=== PATIENT | female | born 1960 | race Caucasian/White ===

== ENCOUNTER 2020-05-16 13:11 | Outpatient (CLI) | payer MEDICARE, MEDICAID, SELFPAY ==
--- NOTE | 2020-05-16 13:28 | XR_ITS ---
WS: [id number] XR lumbar spine 2-3V* [id number] REASON FOR EXAM: DORSALGIA, UNSPECIFIED FINDINGS: The thoracolumbar junctions shows scoliosis convex to the left. Degenerated changes are not ed at the T11-12 area. There is loss of the disc spaces also seen at L5-S1. There is degenerate spurring from L1 through S1. There is increased lordosis identified. XR/XR lumbar spine 2-3V* [id number] IMPRESSION: Degenerated disc changes L5-S1 line degenerate changes with scoliosis thoracolu mbar area convex to the left There is degenerate spurring L1-S1 Increased lordosis.
== END 2020-05-16 13:12 | disposition home or self-care (01) ==
LOC: RADWPI 13:17
PROVIDERS: Family Provider Nurse Practitioner Family; PCP Nurse Practitioner Family; Visit Provider Nurse Practitioner Family
DX: M51.37 Other intervertebral disc degeneration, lumbosacral region; M46.07 Spinal enthesopathy, lumbosacral region; M40.56 Lordosis, unspecified, lumbar region
CPT/HCPCS: 72100

== ENCOUNTER 2020-05-21 20:00 | Outpatient (CLI) | payer MEDICARE, MEDICAID, SELFPAY | END 2020-05-21 20:01 | disposition home or self-care (01) | LOC: SLEEP 05-22 09:12 | PROVIDERS: Family Provider Nurse Practitioner Family; PCP Nurse Practitioner Family; Visit Provider Nurse Practitioner Family | DX: G47.10 Hypersomnia, unspecified (principal) | CPT/HCPCS: 95810 ==

== ENCOUNTER 2020-11-27 11:18 | Outpatient (RCR) | payer OTHER, MEDICARE, MEDICAID, SELFPAY | END 2020-11-29 23:59 | disposition home or self-care (01) | LOC: SOT 11:18 | PROVIDERS: Family Provider Nurse Practitioner Family; PCP Nurse Practitioner Family; Referring Provider Orthopaedic Surgery; Visit Provider Orthopaedic Surgery | DX: Z47.89 Encounter for other orthopedic aftercare (principal) | CPT/HCPCS: 97167 ==

== ENCOUNTER 2020-11-30 06:00 | Outpatient (RCR) | payer OTHER, MEDICAID, MEDICARE, SELFPAY | END 2020-12-17 23:00 | disposition home or self-care (01) | LOC: SOT 06:00 | PROVIDERS: Family Provider Nurse Practitioner Family; PCP Nurse Practitioner Family; Referring Provider Orthopaedic Surgery; Visit Provider Orthopaedic Surgery | DX: Z47.89 Encounter for other orthopedic aftercare (principal) | CPT/HCPCS: 97035; 97110; 97140 ==

== ENCOUNTER 2021-04-12 15:47 | Outpatient (CLI) | payer MEDICARE, MEDICAID, SELFPAY ==
--- NOTE | 2021-04-12 16:02 | XRR_ITS ---
PROCEDURE INFORMATION: Exam: XR Lumbosacral Spine Exam date and time: 04/12/2021 4:54 PM Age: 60 years old Clinical indication: Dorslagia and lumbago; Patient HX: C/O back pain for years. Spondylosis; Additional info: Spondylosis; Dorsalgia TECHNIQUE: Imaging protocol: XR of the lumbosacral spine. Views: 4 or 5 views. COMPARISON: No relevant prior studies available. FINDINGS: Bones/joints: There is moderate osteoarthritis seen.. No acute fracture. Normal alignment. Soft tissues: Unremarkable. XR/XR lumbar spine min 4V [id number] IMPRESSION: 1. Moderate osteoarthritis. 2. Otherwise No acute findings.
--- NOTE | 2021-04-12 16:02 | XRR_ITS ---
PROCEDURE INFORMATION: Exam: XR Thoracolumbar Spine Exam date and time: 04/12/2021 4:54 PM Age: 60 years old Clinical indication: Dorslagia and low back pain; Patient HX: C/O back pain for years. Spondylosis lumbosacral region; Additional info: Spondylosis lumbosacral region; Dorsalgia TECHNIQUE: Imaging protocol: XR of the thoracolumbar spine. Views: 2 views. COMPARISON: No relevant prior studies available. FINDINGS: Bones/joints: There is mild osteoarthritis seen with bone spurs at multiple levels. No acute fracture. Normal alignment. Soft tissues: Unremarkable. XR/XR thoracolumbar junct [id number] IMPRESSION: No acute findings.
== END 2021-04-12 15:48 | disposition home or self-care (01) ==
PROVIDERS: PCP Nurse Practitioner Family; Referring Provider Nurse Practitioner Family; Visit Provider Nurse Practitioner Family
DX: M54.5 Low back pain (principal); M47.816 Spondylosis without myelopathy or radiculopathy, lumbar region
CPT/HCPCS: 72080; 72110

== ENCOUNTER 2021-04-19 13:09 | Outpatient (CLI) | payer MEDICARE, MEDICAID, SELFPAY ==
--- NOTE | 2021-04-19 13:15 | CT_ITS ---
WS: [id number] LDCT LUNG CANCER SCREENING TECHNIQUE: Noncontrast CT of the chest with coronal and sagittal reformatted images. CLINICAL INFORMATION: TOBACCO USE COMPARISON: None. DLP: 48.64 mGy.cm DIvol: 1.[address] scans at [facility] use at least one of these dose optimization techniques: automat ed exposure control; mA and/or kV adjustment per patient size (includes targeted exams where dose is matched to clinical indication); or iterative reconstruction. FINDINGS: No acute pulmonary infiltrates. No consolidation or pleural fluid. 5 mm nodule right lower lobe along the fissure. Slight bibasilar atelectasis. No mediastinal or hilar lymphadenopathy. Coronary calcifi cation. Normal GE junction. No axillary lymphadenopathy. Hypertrophic changes thoracic spine. CT/CT lung screening [id number] IMPRESSION: LUNG-RADS: 2-Benign Appearance or Behavior FOLLOW UP: 12 Month: Continue annual screening with LDCT
== END 2021-04-19 13:10 | disposition home or self-care (01) ==
LOC: RAD 13:13
PROVIDERS: PCP Nurse Practitioner Family; Visit Provider Nurse Practitioner Family
DX: Z12.2 Encounter for screening for malignant neoplasm of respiratory organs (principal); F17.210 Nicotine dependence, cigarettes, uncomplicated
CPT/HCPCS: 71271

== ENCOUNTER 2021-10-30 16:17 | Outpatient (CLI) | payer MEDICARE, MEDICAID, SELFPAY ==
--- NOTE | 2021-10-30 16:41 | XR_ITS ---
WS: [id number] Right elbow, 3 views, 10/30/2021 Clinical Data: PAIN IN RT. ELBOW Comparison: None. Findings: No fractures or dislocations are seen. The radial head is normal. The soft tissues are unremarkable. There is a small olecranon spur. There is irregularity of the medial aspect of the coronoid process o f the ulna. XR/XR elbow RT min 3V* [id number] Impression: Minimal osteoarthritis.
== END 2021-10-30 16:18 | disposition home or self-care (01) ==
LOC: RAD 16:20
PROVIDERS: PCP Nurse Practitioner Family; Visit Provider Nurse Practitioner Family
DX: S40.811A Abrasion of right upper arm, initial encounter (principal); X58.XXXA Exposure to other specified factors, initial encounter; M19.021 Primary osteoarthritis, right elbow
CPT/HCPCS: 73080